=== PATIENT | female | born 1990 | race Caucasian/White ===

== ENCOUNTER → 2016-09-07 | Outpatient (CLI) | payer BC ==
--- NOTE | 2016-09-07 14:24 | KCIC ---
EXAM: Pelvic sonogram. HISTORY: Irregular bleeding. TECHNIQUE: Transabdominal and transvaginal sonographic imaging of the pelvis was performed. COMPARISON: None. FINDINGS: The uterus measures 8.0 x 3.5 x 5.3 cm. The endometrial stripe is thin, measuring 1.6 mm. The right ovary measures 3.4 x 2.7 x 2.3 cm. The left ovary measures 1.9 x 1.3 x 1.6 cm. There is a 1.9 cm right dominant right ovarian follicle/follicular cyst. There is normal blood flow within both ovaries. There is no pelvic free fluid. IMPRESSION: 1. 1.9 cm dominant right ovarian follicle/follicular cyst. 2. Thin endometrial stripe. Electronically signed by: Gayatri Sampson MD (09/07/2016 2:20 PM)
== END | disposition home or self-care (01) ==
LOC: KCIC US 12:48
PROVIDERS: ATTEND Family Medicine
DX: N83.01 Follicular cyst of right ovary (principal); N92.6 Irregular menstruation, unspecified; R25.2 Cramp and spasm
CPT/HCPCS: 76830; 76856

== ENCOUNTER → 2017-08-30 | Outpatient (CLI) | payer OTHER | END | disposition home or self-care (01) | LOC: KCIC US 08:52 | DX: Z34.92 Encounter for supervision of normal pregnancy, unspecified, second trimester (principal); Z3A.15 15 weeks gestation of pregnancy | CPT/HCPCS: 76801; 76817 ==